=== PATIENT | male | born 1955 | race Caucasian/White ===

== ENCOUNTER 2022-01-30 09:27 | Outpatient (CLI) | payer BC, SELFPAY ==
[2022-01-30 09:44] LABS: Albumin* 4.8 g/dL (3.3-5.0)
[2022-01-30 09:45] LABS: Chloride* 104 mmol/L (96-114); Sodium* 140 mmol/L (135-149)
[2022-01-30 09:47] LABS: Aspartate Amino Transferase* 26 U/L (12-35); Bilirubin Total* 1.2 mg/dL (0.1-1.5); Blood Urea Nitrogen* 15 mg/dL (7-30); Carbon Dioxide* 28 mmol/L (20-32); Cholesterol* 154 mg/dL (90-199); Creatinine* 1.2 mg/dL (0.5-1.5); Estimated Glomerular Filt Rate 68 ml/min; Total Protein* 7.6 g/dL (6.0-8.3)
[2022-01-30 09:48] LABS: Alanine Aminotransferase* 26 U/L (4-50); Alkaline Phosphatase* 70 U/L (40-150); Calcium* 9.3 mg/dL (8.4-10.6); Glucose* 104 mg/dL (60-115); HDL Cholesterol* 40 mg/dL (>=40); LDL Cholesterol Calculated 75 mg/dL (<100); Triglycerides* 194 mg/dL (40-149)
== END 2022-01-30 09:28 | disposition home or self-care (01) ==
PROVIDERS: PCP Family Medicine; Visit Provider Family Medicine
DX: E78.5 Hyperlipidemia, unspecified (principal); I25.10 Atherosclerotic heart disease of native coronary artery without angina pectoris
CPT/HCPCS: 80053; 80061

== ENCOUNTER 2022-11-28 08:28 | Outpatient (CLI) | payer MEDICARE, BC, SELFPAY | END 2022-11-28 08:29 | disposition home or self-care (01) | LOC: NFLDREF 11-30 09:06 | PROVIDERS: PCP Family Medicine; Referring Provider Family Medicine; Visit Provider Family Medicine | DX: E78.5 Hyperlipidemia, unspecified (principal); I25.10 Atherosclerotic heart disease of native coronary artery without angina pectoris; R73.03 Prediabetes | CPT/HCPCS: 80053; 80061 ==

== ENCOUNTER 2024-02-20 08:19 | Outpatient (CLI) | payer MEDICARE, BC, SELFPAY | END 2024-02-20 08:20 | disposition home or self-care (01) | LOC: NFLDREF 11:40 | PROVIDERS: PCP Family Medicine; Referring Provider Family Medicine; Visit Provider Family Medicine | DX: I25.10 Atherosclerotic heart disease of native coronary artery without angina pectoris (principal); E78.5 Hyperlipidemia, unspecified; Z12.5 Encounter for screening for malignant neoplasm of prostate | CPT/HCPCS: 80053; 80061; G0103 ==

== ENCOUNTER 2024-04-02 09:25 | Outpatient (CLI) | payer MEDICARE, BC, SELFPAY ==
--- NOTE | 2024-04-02 10:59 | P.ANES_ITS ---
Anesthesia Charges Start Date/Time Anesthesia Start Date: 04/02/24 Anesthesia Start Time: 10:23 Stop Date/Time Anesthesia Stop Date: 04/02/24 Anesthesia Stop Time: 10:57 Coding CPT Codes CPT Codes: ANES LWR INTST NDSC NOS - [id number] ([id number]) P3 - PATIENT W/SEVERE SYS DISEASE, QK - BARRATTE OPERATOR 2-4 CNCRNT ANES PROC, QX - SANDWICH BOARD CARRIER SVC W/ MD MED DIRECTION
--- NOTE | 2024-04-02 10:59 | W.ANESCHARGE ---
Anesthesia Charges Start Date/Time Anesthesia Start Date: 04/02/24 Anesthesia Start Time: 10:23 Stop Date/Time Anesthesia Stop Date: 04/02/24 Anesthesia Stop Time: 10:57 Coding CPT Codes CPT Codes: ANES LWR INTST NDSC NOS - [id number] ([id number]) P3 - PATIENT W/SEVERE SYS DISEASE, QK - SLIDER ASSEMBLER 2-4 CNCRNT ANES PROC, QX - TEST HOLE DRILLER SVC W/ MD MED DIRECTION
--- NOTE | 2024-04-02 12:04 | P.ANES_ITS ---
Anesthesia Charges Start Date/Time Anesthesia Start Date: 04/02/24 Anesthesia Start Time: 10:23 Stop Date/Time Anesthesia Stop Date: 04/02/24 Anesthesia Stop Time: 10:57 Coding CPT Codes CPT Codes: ANES LWR INTST NDSC NOS - [id number] ([id number]) QK - SHANK PINNER 2-4 CNCRNT ANES PROC, QX - WALLPAPER CLEANER SVC W/ MED DIRECTION, P3 - PATIENT W/SEVERE SYS DISEASE
--- NOTE | 2024-04-02 12:04 | W.ANESCHARGE ---
Anesthesia Charges Start Date/Time Anesthesia Start Date: 04/02/24 Anesthesia Start Time: 10:23 Stop Date/Time Anesthesia Stop Date: 04/02/24 Anesthesia Stop Time: 10:57 Coding CPT Codes CPT Codes: ANES LWR INTST NDSC NOS - [id number] ([id number]) QK - CLASSIFIED ADVERTISING CLERK 2-4 CNCRNT ANES PROC, QX - HORSEBACK EXCAVATOR SVC W/ MED DIRECTION, P3 - PATIENT W/SEVERE SYS DISEASE
== END 2024-04-02 09:26 | disposition home or self-care (01) ==
PROVIDERS: PCP Family Medicine; Visit Provider Surgery
DX: Z12.11 Encounter for screening for malignant neoplasm of colon (principal); D12.3 Benign neoplasm of transverse colon; K57.30 Diverticulosis of large intestine without perforation or abscess without bleeding
CPT/HCPCS: 00811; 45385; 88305; J2704